=== PATIENT | female | born 1965 | race Caucasian/White ===

== ENCOUNTER 2018-02-21 05:41 | Day surgery (SDC) | payer MEDICARE, MEDICAID ==
[~2018-02-21] VITALS: Ht 165.1 cm; Wt 97.1 kg
--- NOTE | ~2018-02-21 | OP ---
PATIENT NAME: CATHERINE AGUSTIN MEDICAL RECORD: [id number] :63 LOCATION:[facility] ADMISSION DATE: SURGEON: TIMOTEO MCNEIL MD DATE OF OPERATION: 02/21/2018 PREOPERATIVE DIAGNOSES: End-stage renal disease, on chronic hemodialysis and dependence on hemodialysis. POSTOPERATIVE DIAGNOSES: End-stage renal disease, on chronic hemodialysis and dependence on hemodialysis. REFERRING PHYSICIAN: Tea Wang MD OPERATION PERFORMED: Creation of a Farhat type brachial artery and proximal radial artery to cephalic vein AV fistula in the left arm. SURGEON: Timoteo Mcneil MD ANESTHESIA: Regional block plus GA per ARCHITECTURAL MODELER. PREOPERATIVE NOTE: Ms. Agustin is a 52-year-old white female patient from [place]. She has end-stage renal disease and is already on dialysis with a tunneled dialysis catheter. She needs a fistula and she is brought to the OR at this time for creation of a fistula on the left. Under additional anesthesia, the patient was placed in supine position, prepped and draped in a sterile manner. I examined her with ultrasound and then made an incision across the antecubital space and exposed the median cubital vein and median antebrachial vein and then under that exposed the distal brachial artery and its bifurcation and I controlled the arteries with Silastic loops and planned to do my anastomosis to the very distal brachial artery and proximal radial artery. These vessels were rather small, but I thought it was possible. There was an atheromatous plaque in the brachial artery there at the bifurcation also. I occluded the artery with Silastic loops and then flushed with heparinized saline proximally and distally. The vein was prepared for anastomosis with topical papaverine. The vein draining to the basilic was divided between 3-0 Vicryl ties and the deep or perforating vein was also divided between clips and ties and the distal median cubital or proximal median antebrachial vein were ligated and divided and bevelled. The vein was flushed with heparin solution. The artery was flushed again with heparin solution and an end-to-side, end of vein to side of artery anastomosis was performed with running 7-0 Prolene. When completed, there was good flow in the fistula. The suture line was hemostatic. The wound was closed with interrupted inverted 3-0 Vicryl and running intracuticular 4-0 Monocryl and Dermabond glue. It was dressed with Maxorb Ag, Tegaderm, and Cavilon skin prep. Upon reaching the recovery room, there was an excellent palpable thrill and an audible bruit over the new fistula. There was good Doppler flow to the hand at the wrist and the radial artery as well. Blood loss during the operation was trivial and unreplaced. All sponges, instruments and needles were accounted for. No drain was used and no surgical specimen submitted for histopathology. OPERATIVE REPORT [id number] CATHERINE AGUSTIN PLAN: The patient will be discharged to home, but just leave the original operative dressing alone. Continue her preoperative medications and resume her Plavix same daily dosage tomorrow. I will see her back in my office next week and remove the dressing at that time. TRANSINT:[id number] Voice Confirmation ID: [id number] DOCUMENT ID: [id number] TIMOTEO MCNEIL MD at 2205 CC: TEA WANG MD [id number] DICTATION DATE: 02/21/18 1154 NAPHTHALENE OPERATOR HELPER: 02/21/18 1318 [facility] 02/21/18 [id number] [place] [address]
[2018-02-21 06:06] LABS: BASOPHILS 0.7 % (0-2); EOSINOPHILS 2.3 % (0-7); HEMATOCRIT 34.6 % (36.0-48.0); HEMOGLOBIN 10.4 g/dL (12-16); IMMATURE GRANULOCYTES 0.4 % (0-5); LYMPHOCYTES 13.5 % (15-50); MCHC 30.1 g/dL (31.0-37.0); MCV 83.2 fL (80.0-100.0); MEAN PLATELET VOLUME 9.6 fL (7.4-10.4); MONOCYTES 5.3 % (2-11); NEUTROPHILS 77.8 % (40-80); PLATELET COUNT 309 10x3/uL (130-400); RBC 4.16 10x6/uL (4.00-5.40); RDW 20.1 % (11.5-14.5)
[2018-02-21 06:21] LABS: APTT 31.2 SECONDS (22.8-39.4); INR 1.06 (0.85-1.17); PROTIME 13.4 SECONDS (11.6-15.0)
[2018-02-21 06:25] LABS: ANION GAP 16.5 mmol/L (8-16); CALCIUM 10.2 mg/dL (8.5-10.1); CARBON DIOXIDE 26.9 mmol/L (21.0-32.0); POTASSIUM - SERUM 4.4 mmol/L (3.5-5.1)
[2018-02-21] MEDS ORDERED: LEVOTHYROXINE75 MCG PO (07:11)
[2018-02-21] MEDS ORDERED: ULTRAM50 MG PO ×2 (07:12→11:42)
[2018-02-21] MEDS ORDERED: POT CHLORIDE TAB 10M (07:13)
[2018-02-21] MEDS ORDERED: BUMEX2 MG PO (07:13)
[2018-02-21] MEDS ORDERED: ZOFRAN8 MG PO (07:14)
[2018-02-21] MEDS ORDERED: NIFEDIPINE TAB 60M (07:14)
[2018-02-21] MEDS ORDERED: NEURONTIN 300300 MG (07:14)
[2018-02-21] MEDS ORDERED: NOVOLOG INJ FLE (07:15)
[2018-02-21] MEDS ORDERED: NEXIUM40 MG PO (07:15)
[2018-02-21] MEDS ORDERED: PLAVIX75 MG (07:15)
[2018-02-21] MEDS ORDERED: LEVEMIR INJ FLE (07:16)
[2018-02-21 07:19] VITALS: BP 143/70; Ht 165.1 cm; Wt 97.1 kg
== END 2018-02-21 13:50 | disposition home or self-care (01) ==
LOC: D.OPS 05:41
PROVIDERS: Surgery
DX: N18.6 End stage renal disease (principal); Z99.2 Dependence on renal dialysis; Z01.812 Encounter for preprocedural laboratory examination

== ENCOUNTER 2018-10-03 11:45 | Day surgery (SDC) | payer MEDICARE ==
[~2018-10-03] VITALS: Ht 165.1 cm; Wt 99.8 kg
--- NOTE | ~2018-10-03 | OP ---
PATIENT NAME: CATHERINE AGUSTIN MEDICAL RECORD: [id number] :63 LOCATION:[facility] ADMISSION DATE: SURGEON: TIMOTEO MNCEIL MD DATE OF OPERATION: 10/03/2018 REFERRING PHYSICIAN: Elvin De Anda MD PREOPERATIVE DIAGNOSES: End-stage renal disease, dependence on hemodialysis; morbid obesity; and mechanical complication of AV fistula, left arm, brachiocephalic. POSTOPERATIVE DIAGNOSES: End-stage renal disease, dependence on hemodialysis; morbid obesity; and mechanical complication of AV fistula, left arm, brachiocephalic. OPERATION PERFORMED: Open revision without thrombectomy of left arm brachiocephalic AV fistula and laparoscopic implantation of peritoneal dialysis catheter with laparoscopic omentopexy. SURGEON: Timoteo Mcneil MD ANESTHESIA: General endotracheal per [address] VENDOR. PREOPERATIVE NOTE: Ms. Agustin is a 53-year-old lady from [place], who had a left arm distal brachial or proximal radial artery cephalic AV fistula, created in February of 2018. It is not mature or is not usable and she remains catheter dependent. She has had one episode of severe MRSA sepsis and it is becoming relatively urgent that we get her tunnel dialysis catheter out and establish better long-term access. The fistula that she has is simply too deep and I have brought her to the hospital and to the operating room today with plans to elevate the fistula into a superficial subcutaneous position so that hopefully, when the wound is healed, it will be accessible. She also is to have a laparoscopic peritoneal dialysis catheter implanted. DESCRIPTION OF PROCEDURE: Under anesthesia, in supine position, the patient's arm was prepped and draped in sterile manner. An incision was made from deltopectoral groove to the antecubital space and the vein mobilized by sharp dissection. Small tributaries were divided between clips and closed with electrocautery. One larger vessel was ligated with 3-0 Vicryl. The wound was irrigated with Ancef and gentamicin solution. Hemostasis was assured with electrocautery and the wound was then infiltrated with 0.25% Marcaine plain. The wound was closed, approximating subcutaneous tissues deep to the vein and then approximating the skin over the vein with a running intracuticular 4-0 Monocryl and Dermabond glue. The incision was dressed with Maxorb Ag, Tegaderm, and Cavilon skin prep. The arm was then tucked to her side and the abdomen was exposed. It had been prepped and draped earlier. I entered the abdomen with a 5-mm port through a small incision in the left upper quadrant. Pneumoperitoneum was established with carbon dioxide. One other 5-mm port was placed in the left lower quadrant. This operation was done utilizing a 0-degree 5-mm laparoscope. The patient was found to have a large fatty omental apron and required an omentopexy. This was done by reefing up the omentum and suturing it to the anterior abdominal wall with a Gagandeep-Mahendra suture passer through 2 small incisions in the epigastric area. I then made an incision to the right of the umbilicus and identified a site for the Dacron felt cuff of the tube to be left behind within the rectus sheath. I then used an introducer needle to create a OPERATIVE REPORT [id number] CATHERINE AGUSTIN for the retrorectus or intrarectus muscle tunnel. A guidewire was inserted and a dilator peel-away sheath. The Medcomp coil dual cuff swan neck catheter was then inserted and the peel-away sheath was removed. The Dacron felt cuff was placed just beneath the anterior rectus sheath and the coiled catheter was placed in the pelvis. It appeared to be of the right length and depth of penetration into the pelvis. The catheter was then placed in the lateral subcutaneous tunnel and brought out through the previously identified ideal exit site. The catheter was then flushed with saline. The abdominal wound was infiltrated with 0.25% Marcaine and then closed with interrupted and inverted 3-0 Vicryl and then thierry. The abdomen was filled with 500 cc of saline, which was then aspirated with little difficulty. The catheter was then heparin locked, clamped, and capped. The laparoscopic paraphernalia was removed after examining again the abdomen and noting no evidence of any injury or inadvertent injury to bowel or surrounding structures, particularly at the omentopexy. I confirmed that the transverse colon was remote from the omentopexy sufficient so as to not have been in danger. The ports were removed. Wounds were closed with interrupted inverted 3-0 Vicryl and Dermabond glue. The incisions were stapled and sterile dressings were applied. The patient was awakened and taken to the recovery room. She will go home today and go to dialysis tomorrow in [place]. She is to come back to [facility] on , that is day after tomorrow, to have her catheter flushed. She will continue her routine medications and dialysis schedule. I have asked her to hold her Plavix until Tuesday of this week. I would like to see her back in my office next week. TRANSINT:[id number] Voice Confirmation ID: [id number] DOCUMENT ID: [id number] TIMOTEO MCNEIL MD CC: ELVIN DE ANDA [id number] DICTATION DATE: 10/03/181711 CREPE MACHINE OPERATOR: 10/03/18 2259 [facility] [place] 10/03/18 [id number] [place] [address]
[~2018-10-03 11:45] MED LIST: BUMEX2 MG PO; LEVEMIR INJ FLE; LEVOTHYROXINE75 MCG PO; NEURONTIN 300300 MG; NEXIUM40 MG PO; NIFEDIPINE TAB 60M; NOVOLOG INJ FLE; PLAVIX75 MG; POT CHLORIDE TAB 10M; ULTRAM50 MG PO; ZOFRAN8 MG PO
[2018-10-03] MEDS ORDERED: LIPITOR40 MG PO ×2 (13:01→13:09)
[2018-10-03] MEDS ORDERED: PROBIOTIC ×2 (13:04→13:08)
[2018-10-03] MEDS ORDERED: ZYLOPRIM100 MG PO ×2 (13:05→13:07)
[2018-10-03] MEDS ORDERED: NEPHRO-VITE RX1 TAB (13:05)
[2018-10-03 13:06] LABS: BASOPHILS 0.8 % (0-2); HEMATOCRIT 38.2 % (36.0-48.0); HEMOGLOBIN 12.4 g/dL (12-16); IMMATURE GRANULOCYTES 0.3 % (0-5); LYMPHOCYTES 14.9 % (15-50); MCH 31.5 pg (26.0-34.0); MCHC 32.5 g/dL (31.0-37.0); MEAN PLATELET VOLUME 10.1 fL (7.4-10.4); MONOCYTES 8.3 % (2-11); NEUTROPHILS 72.7 % (40-80); RBC 3.94 10x6/uL (4.00-5.40); RDW 16.7 % (11.5-14.5); WBC 6.7 10x3/uL (4.8-10.8)
[2018-10-03] MEDS ORDERED: RENVELA800 MG PO ×2 (13:06→13:07)
[2018-10-03] MEDS ORDERED: FOLBIC RF TABL1 EACH PO (13:08)
[2018-10-03] MEDS ORDERED: VITAMIN C WIT1000 MG (13:09)
[2018-10-03 13:10] LABS: PLATELET COUNT 218 10x3/uL (130-400)
[2018-10-03 13:14] LABS: ANION GAP 19.1 mmol/L (8-16); CALCIUM 9.8 mg/dL (8.5-10.1); CARBON DIOXIDE 24.5 mmol/L (21.0-32.0); INR 0.92 (0.85-1.17); POTASSIUM - SERUM 4.6 mmol/L (3.5-5.1); PROTIME 11.9 SECONDS (11.6-15.0)
[2018-10-03 13:22] VITALS: Ht 165.1 cm; Wt 99.8 kg
--- NOTE | 2018-10-03 16:12 | NUR ---
HEMOSPLIT NOTED TO RT UPPER CHEST. DRESSING INTACT.
[2018-10-03] MEDS ORDERED: HYDROCODON-ACE1 EAC7 PO (16:23)
--- NOTE | 2018-10-03 16:40 | NUR ---
PATIENT CONTINUES TO C/O PAIN AFTER ADMINISTRATION OF BUPRINEX. VERBAL ORDERS PER ANESTHESIA FOR PATIENT TO RECIEVE PO PAIN MEDICATION IN OUTPATIENT.
--- NOTE | 2018-10-03 18:16 | NUR ---
[address] MCNEIL AND ANESTHESIA ABOUT BLOOD PRESSURE ELEVATION.
--- NOTE | 2018-10-03 18:21 | NUR ---
ANTON MAI RN CALLED TO INFORM ME THAT THIS PATIENT'S BLOOD PRESSURE WAS 202/63, HR 83. RATES PAIN 12/25. CONSULTED WITH DR MCNEIL. VERBAL ORDERS RECEIVED TO ADMINISTER HYDRALAZINE 10MG X1 IN O/P NOW. COMMUNICATED THE ABOVE TO ANTON MAI RN. WILL CONTINUE TO MONITOR.
--- NOTE | 2018-10-03 18:38 | NUR ---
1829 RECEIVED ORDERS FOR HYDRALAZINE 1834 PT'S BP NOW IMPROVED TO 158/75 I DID NOT GIVE THE APRESSOLINE. PT. WAS OFFERED TO STAY OVERNIGHT AND PREFERS TO GO HOME.
== END 2018-10-03 19:15 | disposition home or self-care (01) ==
LOC: D.OPS 11:45
PROVIDERS: Surgery; ATTEND Internal Medicine Nephrology
DX: T82.590A Other mechanical complication of surgically created arteriovenous fistula, initial encounter (principal); N18.6 End stage renal disease; Z99.2 Dependence on renal dialysis; E66.01 Morbid (severe) obesity due to excess calories; Z68.36 Body mass index [BMI] 36.0-36.9, adult; Z01.812 Encounter for preprocedural laboratory examination

== ENCOUNTER 2019-04-17 08:33 | Day surgery (SDC) | payer MEDICARE ==
[~2019-04-17] VITALS: Ht 165.1 cm; Wt 98.4 kg
[~2019-04-17 08:33] MED LIST changes: +FOLBIC RF TABL1 EACH PO; +HYDROCODON-ACE1 EAC7 PO; -LEVEMIR INJ FLE; +LEVEMIR INJ FLE SQ; +LIPITOR40 MG PO; +NEPHRO-VITE RX1 TAB; +PROBIOTIC; +RENVELA800 MG PO; +VITAMIN C WIT1000 MG; +ZYLOPRIM100 MG PO
[2019-04-17 09:11] LABS: HEMOGLOBIN 9.5 g/dL (12-16); IMMATURE GRANULOCYTES 0.3 % (0-5); LYMPHOCYTES 17.7 % (15-50); MCHC 29.7 g/dL (31.0-37.0); MCV 100.9 fL (80.0-100.0); MEAN PLATELET VOLUME 10.1 fL (7.4-10.4); MONOCYTES 7.6 % (2-11); NEUTROPHILS 70.4 % (40-80); RBC 3.17 10x6/uL (4.00-5.40); WBC 5.9 10x3/uL (4.8-10.8)
[2019-04-17 09:12] LABS: PLATELET COUNT 300 10x3/uL (130-400)
[2019-04-17 09:19] LABS: ANION GAP 14.5 mmol/L (8-16); CALCIUM 9.1 mg/dL (8.5-10.1); CARBON DIOXIDE 29.6 mmol/L (21.0-32.0); CREATININE - SERUM 5.4 mg/dL (0.6-1.3); INR 1.07 (0.85-1.17); POTASSIUM - SERUM 4.1 mmol/L (3.5-5.1); PROTIME 13.4 SECONDS (11.6-15.0)
[2019-04-17] MEDS ORDERED: PROBIOTIC1 EAC1 PO (10:28)
[2019-04-17] MEDS ORDERED: BENADRYL25 MG PO (10:30)
[2019-04-17] MEDS ORDERED: BAYER CHEWABLE81 MG PO (10:30)
[2019-04-17] MEDS ORDERED: ROCALTROL0.25 MCG PO (10:31)
[2019-04-17] MEDS ORDERED: LASIX80 MG (10:32)
[2019-04-17] MEDS ORDERED: MIDODRINE HCL5 MG PO (10:33)
[2019-04-17] MEDS ORDERED: VITAMIN C500 M1 PO (10:34)
[2019-04-17] MEDS ORDERED: HAIR, SKIN, NAILS PO (10:35)
[2019-04-17] MEDS ORDERED: PLAVIX75 MG PO (10:36)
[2019-04-17] MEDS ORDERED: VITAMIN B-12500 MCG PO (10:36)
[2019-04-17] MEDS ORDERED: LYRICA75 MG PO (10:37)
[2019-04-17] MEDS ORDERED: ACETAMINOPHEN500 M1 PO (10:37)
[2019-04-17] MEDS ORDERED: RENA-VITE TABL0.8 MG PO (10:37)
[2019-04-17 10:57] VITALS: Ht 165.1 cm; Wt 98.4 kg
--- NOTE | 2019-04-17 11:30 | NUR ---
1130 PT'S BS DRAWN AT 0900 WAS 349 AND WAS REPORTED TO MAURICE ANDRES CRNA. ORDERS RECEIVED FOR REGULAR INSULIN 10 UNITS IV AND TO RECHECK BS 15 MINUTES LATER. INSULIN GIVEN AT 1040 ORDERED. RECHECKED BS 15 MINUTES LATER WAS [address] ACEVEDO. RECEIVED ORDERS TO RECHECK IN 30 MINUTES. BS AT 1127 WAS [address] ACEVEDO. NO ORDERS RECEIVED FOR ANY FURTHER TREATMENT.
--- NOTE | 2019-04-17 15:16 | NUR ---
HEMO-SPLIT NOTED TO RT UPPER CHEST
--- NOTE | 2019-04-28 14:59 | OP ---
PATIENT NAME: CATHERINE AGUSTIN MEDICAL RECORD: [id number] :61 LOCATION:[facility] ADMISSION DATE: SURGEON: TIMOTEO MCNEIL MD DATE OF OPERATION: 04/17/2019 REFERRED BY: Elvin De Anda MD PREOPERATIVE DIAGNOSES: Thrombosed left brachiocephalic arterial venous fistula and failure of peritoneal dialysis, also end-stage renal disease, dependence on hemodialysis. SURGEON: Timoteo Mcneil MD ANESTHESIA: General with LMA per ANODE WORKER. OPERATION PERFORMED: 1. Ultrasound-guided access times 2 and AngioJet mechanical thrombolysis and balloon angioplasty of thrombosed left brachiocephalic arterial venous fistula and selective left brachial artery arteriogram. 2. Removal of peritoneal dialysis catheter. PREOPERATIVE NOTE: Ms. Agustin is a 53-year-old morbidly obese white female patient from [place] who in September of this year had a laparoscopic peritoneal dialysis catheter implantation and laparoscopic omentopexy at that time. She also had an open revision of her left arm brachiocephalic arterial venous fistula, which required elevation or transposition as it had been too deep and was not reliably accessible. Since that time, her fistula has worked well. She has failed peritoneal dialysis. She recently broke her hip and was hospitalized for a month at [facility] and thrombosed her fistula somewhere around that time when she entered the hospital. She had a temporary catheter implanted and later at [facility] I believe she had a tunneled dialysis catheter placed on the right. There has been some delay in getting her to the operating room, even after she was discharged from the hospital at [facility] and from their rehab unit. She is now in a rehab unit in [place]. She is brought to the operating room in hopes that we might be able to restore flow or salvage her AV fistula and also plans are to remove the PD catheter. DESCRIPTION OF PROCEDURE: Under general anesthesia, the patient was placed in supine position, prepped and draped in sterile manner. The fistula was accessed with ultrasound guidance. Ultrasound confirmed the presence of organized thrombus within the fistula and the fistula was noncompressible. Images of the micropuncture needle and guidewire in the fistula from the proximal and distal insertion sites are recorded and hard copy documentation is reported in the patient's medical record. The fistula was accessed then through 2 opposing 6-Palestinian introducer sheaths. Over a 0.035 Glidewire, I passed an AngioJet catheter and lysed thrombus through the body of the fistula and through the cephalic arch into the subclavian vein. The patient was systemically heparinized with 5000 units of heparin and balloon angioplasty with an 8-mm diameter balloon was performed, which dilated extensive severe stenosis of the body of the graft and the cephalic arch. Contrast injection revealed residual thrombus and areas of irregularity consistent with inflammation associated with the thrombosis. The fistula was flushed with heparinized saline and a 0.035 Glidewire was then passed distally into the JA segment and arterial anastomosis and selectively then into the first order brachial artery. In order to obtain images to rule out intraoperative emboli it was necessary to perform a selective OPERATIVE REPORT [id number] CATHERINE AGUSTIN brachial artery arteriogram, a glide catheter was passed into the proximal brachial artery and contrast injection revealed filling of the proximal and distal brachial artery and its bifurcation and forearm vessels. No evidence of embolus or arterial thrombosis was seen. I then used the AngioJet over the guidewire to lyse thrombus in the arterial limb of the graft and used the 4-mm angioplasty balloon to dilate the arterial anastomosis and JA segment and then used the 8-mm balloon to dilate the majority of the JA segment. Flow was restored and repeated angiography revealed still very severe irregularities of the wall of the fistula. The patient was not a candidate today for the use of TPA and I did not feel that would be to her advantage to implant a stent from the cephalic arch to the brachial artery anastomosis and so I plan to leave the patient with her tunneled catheter and more than likely will need to implant an AV graft within the next month or 6 weeks. The fistula at this time is open, but I do not think it is going to stay open. The sheaths were removed and hemostasis was obtained with [id number] 4-0 Prolene sutures and the patient was given 30 mg of protamine intravenously. Dressings of Ultrafoam, Tegaderm, and Cavilon skin prep were applied. The abdomen was then exposed and had been prepped earlier. I examined the catheter course with ultrasound and noted its location. I made a short incision from the exit site and exposed the catheter and superficial cuff, which was dissected from surrounding tissues and the catheter divided and the external portion including the superficial cuff was discarded. I reopened the paramedian incision and exposed the catheter and dissected along that with electrocautery and revealed the deep cuff which had been left within the substance of the rectus muscle that was dissected from the surrounding tissues and the remainder of the catheter was removed intact. The catheter was discarded. No specimen was sent to pathology. The fascial defect at that site was closed with 2 interrupted and [id number]-pa-[id number] 0 Vicryl sutures. The wounds were irrigated with Ancef/gentamicin solution and infiltrated with 0.25% Marcaine with epinephrine. No drains were used. The wounds were closed with interrupted inverted 3-0 Vicryl and skin was closed with interrupted simple 3-0 Prolene sutures. Sterile dressings of Maxorb Ag, Tegaderm, and Cavilon were applied and the patient at that point then awakened and taken to the recovery room in stable condition. Blood loss was about 10 cc, none was replaced. Sponges, instruments, and needles were accounted for. No drain was used and no specimen was submitted for histopathology. PLAN: The patient will be discharged to return to the rehab unit in [place] this afternoon. I will plan to follow up with her initially by telephone through the [place] dialysis unit and will see about having her scheduled for implantation of an Artegraft in her left arm in 4-6 weeks. At that time, hopefully, she will be finished with rehab and will be at home and have had a little time to recover and recoup in her own home after this long hospitalization and injury and recovery. TRANSINT:[id number] Voice Confirmation ID: [id number] DOCUMENT ID: [id number] OPERATIVE REPORT [id number] CATHERINE AGUSTIN [place] MD at 1459 CC: WHIT HAMILTON MD and ELVIN DE ANDA [id number] DICTATION DATE: 04/17/19 1601 PLANT PROTECTION SUPERVISOR: 04/18/19 0055 [facility] 04/17/19 [facility] [address] [id number]
== END 2019-04-17 17:15 | disposition home or self-care (01) ==
LOC: D.OPS 08:33
PROVIDERS: Surgery; ATTEND Internal Medicine Nephrology
DX: T82.868A Thrombosis due to vascular prosthetic devices, implants and grafts, initial encounter (principal); Y83.9 Surgical procedure, unspecified as the cause of abnormal reaction of the patient, or of later complication, without mention of misadventure at the time of the procedure; N18.6 End stage renal disease; Z99.2 Dependence on renal dialysis; E66.01 Morbid (severe) obesity due to excess calories; T85.611A Breakdown (mechanical) of intraperitoneal dialysis catheter, initial encounter; E11.22 Type 2 diabetes mellitus with diabetic chronic kidney disease; I12.0 Hypertensive chronic kidney disease with stage 5 chronic kidney disease or end stage renal disease